=== PATIENT | male | born 1970 | race Caucasian/White ===

== ENCOUNTER 2017-09-09 17:57 | Observation (INO) | payer OTHER ==
[~2017-09-09] VITALS: Ht 175.3 cm; Wt 97.5 kg
[2017-09-09 18:30] LABS: BASOPHILS ABSOLUTE AUTO 0.01 K/mm3 (0.00-0.23); BASOPHILS PERCENT AUTO 0 % (0-2); EOSINOPHILS ABSOLUTE AUTO 0.01 K/mm3 (0.00-0.68); EOSINOPHILS PERCENT AUTO 0 % (0-6); Hematocrit 42.4 % (37.0-53.0); Hemoglobin 14.5 g/dL (13.5-17.5); IMMATURE GRAN ABSOLUTE AUTO 0.04 K/mm3 (0.00-0.10); IMMATURE GRAN PERCENT AUTO 0 % (0-1); LYMPHOCYTES ABSOLUTE AUTO 1.99 K/mm3 (0.84-5.20); LYMPHOCYTES PERCENT AUTO 14 % (21-46); MONOCYTES ABSOLUTE AUTO 1.42 K/mm3 (0.16-1.47); MONOCYTES PERCENT AUTO 10 % (4-13); Mean Corpuscular HGB 30.1 pg (26.0-34.0); Mean Corpuscular HGB Conc 34.2 g/dL (31.5-36.5); Mean Corpuscular Volume 88 fL (80-100); Mean Platelet Volume 9.7 fL (9.1-12.4); NEUTROPHILS ABSOLUTE AUTO 10.47 K/mm3 (1.96-9.15); NEUTROPHILS PERCENT AUTO 75 % (41-73); Platelet Count 233 K/mm3 (150-400); RDW Coefficient Variation 12.9 % (11.7-14.2); RDW Standard Deviation 41.5 fL (35.1-46.3); Red Blood Cell Count 4.82 M/mm3 (4.30-5.90); White Blood Cell Count 13.94 K/mm3 (4.00-11.30)
[2017-09-09 18:47] LABS: International Normalized Ratio 1.05; Prothrombin Time Results 10.9 Sec (9.7-11.5)
[2017-09-09 18:51] LABS: Alanine Aminotransfer (ALT/SGP 62 U/L (12-78); Albumin, Blood 4.1 g/dL (3.4-5.0); Albumin/Globulin Ratio 1.1 (0.8-1.8); Alk Phos 57 U/L (50-136); Anion Gap 13 mmol/L (6-16); Aspartate Aminotrans (AST/SGOT 87 U/L (12-37); Bilirubin, Total 1.2 mg/dL (0.1-1.0); Blood Urea Nitrogen 25 mg/dL (8-24); Bun/Creatinine Ratio 18.1 (12.0-20.0); CO2, Blood 23 mmol/L (21-32); Calcium, Blood 9.2 mg/dL (8.5-10.1); Chloride, Blood 100 mmol/L (98-108); Creatinine, Blood 1.38 mg/dL (0.60-1.20); Ethanol (Alcohol), Blood, Med <3 mg/dL; Globulin, Blood 3.6 g/dL (2.2-4.0); Glomerular Filtration Rate 58 (60-); Glucose, Blood 124 mg/dL (70-99); Potassium, Blood 3.5 mmol/L (3.5-5.5); Sodium, Blood 136 mmol/L (136-145); Total Protein, Blood 7.7 g/dL (6.4-8.2)
[2017-09-09 21:26] LABS: Source, Urine Clean Catch
[2017-09-09 21:30] LABS: Bilirubin, Urine Neg (Neg); Blood, Urine 1+ (Neg); Glucose Qualitative, Urine Neg (Neg); Ketones, Urine 1+ (Neg); Leukocyte Esterase, Urine Neg (Neg); Nitrite, Urine Neg (Neg); Protein, Urine Neg (Neg); Urobilinogen, Urine NORM (Normal)
[2017-09-09 21:49] LABS: Appearance, Urine Clear (Clear); Color, Urine Yellow (P-Yellow)
[2017-09-09 21:50] LABS: Bacteria Rare /hpf; Red Blood Cells, Urine 0-2 /hpf (0-2); Squamous Epithelial Cells Not Seen /hpf (Few); U Amphetamine Screen Not Detected; U Barbituate Screen Not Detected; U Benzodiazapine Screen Not Detected; U Buprenorphine Screen Not Detected; U Cannabinoids Screen DETECTED; U Cocaine Screen Not Detected; U Methadone Screen Not Detected; U Methamphetamine Screen Not Detected; U Opiates Screen Not Detected; U Phencyclidine Screen Not Detected; White Blood Cells, Urine 0-2 /hpf (0-5)
[2017-09-09 21:51] LABS: U Oxycodone Screen Not Detected; U Propoxyphene Screen Not Detected
[2017-09-10] MEDS ORDERED: Vistaril50 MG PO (13:57)
[2017-09-11] MEDS ORDERED: Seroquel50 MG PO (13:35)
== END 2017-09-10 16:47 | disposition home or self-care (01) ==
LOC: ER 17:57 → EOR 17:58
PROVIDERS: Emergency Medicine
DX: F32.3 Major depressive disorder, single episode, severe with psychotic features (principal); F28 Other psychotic disorder not due to a substance or known physiological condition; F12.10 Cannabis abuse, uncomplicated; R41.82 Altered mental status, unspecified
CPT/HCPCS: 70450; 80053; 81001; 85025; 85610; 85730; 93005; 93010; 96372; 99285; G0378; G0480; J1200; J2060

== ENCOUNTER 2017-09-11 09:39 | Emergency (ER) | payer OTHER ==
[~2017-09-11] VITALS: Ht 175.3 cm; Wt 97.5 kg
[~2017-09-11 09:39] MED LIST: Vistaril50 MG PO
[2017-09-11] MEDS ORDERED: Seroquel50 MG PO (13:35)
== END 2017-09-11 14:33 | disposition home or self-care (01) ==
LOC: ER 09:39
DX: F32.9 Major depressive disorder, single episode, unspecified (principal)
CPT/HCPCS: 99283

== ENCOUNTER 2023-01-12 09:52 | Day surgery (SDC) | payer OTHER ==
[~2023-01-12] VITALS: Ht 175.3 cm; Wt 110.1 kg
[~2023-01-12 09:52] MED LIST changes: +Seroquel50 MG PO
[2023-01-12] MEDS ORDERED: VALA500 (10:03)
[2023-01-12] MEDS ORDERED: ATOR10 (10:03)
[2023-01-12 12:13] VITALS: BP 126/84
== END 2023-01-12 12:00 | disposition home or self-care (01) ==
LOC: ORSCSDS 09:52
PROVIDERS: Student in an Organized Health Care Education/Training Program
PROC: 0DBK8ZX Excision of Ascending Colon, Via Natural or Artificial Opening Endoscopic, Diagnostic (ICD-10-PCS; principal; 2023-01-12 10:45)
PROC: 0DBL8ZX Excision of Transverse Colon, Via Natural or Artificial Opening Endoscopic, Diagnostic (ICD-10-PCS; principal; 2023-01-12 10:45)
PROC: 0DBP8ZX Excision of Rectum, Via Natural or Artificial Opening Endoscopic, Diagnostic (ICD-10-PCS; principal; 2023-01-12 10:45)
PROC: 0DBN8ZX Excision of Sigmoid Colon, Via Natural or Artificial Opening Endoscopic, Diagnostic (ICD-10-PCS; principal; 2023-01-12 10:45)
PROC: 0DBM8ZX Excision of Descending Colon, Via Natural or Artificial Opening Endoscopic, Diagnostic (ICD-10-PCS; principal; 2023-01-12 10:45)
DX: Z12.11 Encounter for screening for malignant neoplasm of colon (principal); D12.4 Benign neoplasm of descending colon; K62.1 Rectal polyp; K63.5 Polyp of colon; K57.30 Diverticulosis of large intestine without perforation or abscess without bleeding; E78.5 Hyperlipidemia, unspecified; Z79.899 Other long term (current) drug therapy
CPT/HCPCS: 88305; J2704; J7120